=== PATIENT | female | born 1960 ===

== ENCOUNTER 2016-09-25 00:37 | Emergency (ER) | payer MEDICAID ==
[2016-09-25 00:44] VITALS: BP 139/99; PULSE 98; RESP 17; O2SAT 98
--- NOTE | 2016-09-25 00:59 | ED PDOC ---
Lower Extremity Pain/Injury Time Seen by Provider: 09/25/16 00:45 Chief Complaint (Nursing): Lower Extremity Problem/Injury Chief Complaint (Provider): right hip pain History Per: Patient History/Exam Limitations: no limitations Onset/Duration Of Symptoms: Days (2) Current Symptoms Are (Timing): Still Present Additional History Per: Patient Additional Complaint(s): 56 y/o female brought in by EMS for atraumatic right hip pain x 2 days. Patient notes pain worse with weight bearing. Denies falls, excessive walking, numbness/weakness right lower extremity, low back pain. Past Medical History Reviewed: Historical Data, Nursing Documentation, Vital Signs Vital Signs: Last Vital Signs Temp 100.8 F H 09/25/16 00:42 Pulse 98 H 09/25/16 00:42 Resp 17 09/25/16 00:42 BP 139/99 H 09/25/16 00:42 Pulse Ox 98 09/25/16 00:42 - Medical History PMH: Asthma, Diabetes, HTN, Hyperlipidemia, Kidney Stones, Seizures - Family History Family History: States: Unknown Family Hx - Home Medications Home Medications: Ambulatory Orders Medication Instructions Recorded Cyclobenzaprine [Cyclobenzaprine 10 mg PO Q8 PRN #6 tab 09/10/14 HCl] Ibuprofen [Motrin] 600 mg PO Q6 PRN #20 tab 09/10/14 Tramadol Hydrochloride [Tramadol] 50 mg PO TID PRN #10 tab 09/10/14 Divalproex [Depakote ER] 500 mg PO QID 07/25/15 Insulin Glargine,Hum.rec.anlog 60 units SC HS 07/25/15 [Lantus] Insulin Lispro [Humalog] 12 units SC ACBD 07/25/15 Naproxen 500 mg PO BID #30 tab 05/20/16 Naproxen [Naprosyn] 500 mg PO Q12 PRN #20 tablet 09/25/16 traMADol [Ultram] 50 mg PO Q8 PRN #10 tab 09/25/16 - Allergies Allergies/Adverse Reactions: Allergies Allergy/AdvReac Type Severity Reaction Status Date / Time No Known Allergies Allergy Verified 08/22/16 18:28 Review of Systems ROS Statement: Except As Marked, All Systems Reviewed And Found Negative Musculoskeletal: Positive for: Leg Pain (right hip) Physical Exam - Reviewed Nursing Documentation Reviewed: Yes Vital Signs Reviewed: Yes - Physical Exam Appears: Positive for: Well, Non-toxic, No Acute Distress Head Exam: Positive for: ATRAUMATIC, NORMAL INSPECTION, NORMOCEPHALIC Skin: Positive for: Normal Color Eye Exam: Positive for: Normal appearance ENT: Positive for: Normal ENT Inspection Cardiovascular/Chest: Positive for: Regular Rate, Rhythm Respiratory: Positive for: Normal Breath Sounds Pulses-Dorsalis Pedis (L): 2+ Pulses-Dorsalis Pedis (R): 2+ Back: Positive for: Normal Inspection Extremity: Positive for: Normal ROM, Tenderness (right hip; no erythema, swelling, temp change noted). Negative for: Calf Tenderness, Deformity, Swelling Neurologic/Psych: Positive for: Alert, Oriented. Negative for: Motor/Sensory Deficits - ECG O2 Sat by Pulse Oximetry: 98 - Progress ED Course And Treament: xray, toradol IM, tramadol PO On re-eval, patient still with pain, Percocet PO ordered On re-eval, patient states pain improved. Patient educated on findings, discharged with rx Naproxen, Tramadol (educated on possible addiction/dependance of narcotic pain medication and instructed to use as needed for severe pain only) Advised follow up PMD 2-3 days. Rest. Return to ED for worsening/concerning symptoms. Disposition - Clinical Impression Clinical Impression: Hip pain, right - Patient ED Disposition Is Patient to be Admitted: No Counseled Patient/Family Regarding: Studies Performed, Diagnosis, Need For Followup, Rx Given - Disposition Referrals: Laila Santana MD [Primary Care Provider] - Disposition: Routine/Home Disposition Time: 03:20 Condition: IMPROVED Prescriptions: Naproxen [Naprosyn] 500 mg PO Q12 PRN #20 tablet PRN Reason: Pain, Moderate (4-7) traMADol [Ultram] 50 mg PO Q8 PRN #10 tab PRN Reason: Pain, Severe (8-10) Instructions: Hip Pain (ED) Forms: [facility] ED School/Work Excuse
[2016-09-25 01:09] VITALS: TEMP 97.9
[2016-09-25] MEDS ORDERED: Oxycodone/Acetaminophen 5/325 mg Tab ONE (02:29)
[2016-09-25] MEDS ORDERED: Oxycodone/Acetaminophen 5/325 mg Tab PO ONE (02:34)
--- NOTE | 2016-09-25 13:31 | RAD ---
PROCEDURE: The HISTORY: Atraumatic pain COMPARISON: None TECHNIQUE: AP view of the pelvis and AP and frog lateral views of the right hip were obtained. FINDINGS: The pelvic ring is intact. There is no acute fracture or bone destruction. Bone alignment and mineralization are normal. There is mild degenerative osteoarthrosis in the hip joints with reduced joint spaces and marginal spurring. There is multi lobular calcification lateral to the greater trochanter. IMPRESSION: 1. No acute fracture, dislocation or bone destruction. 2. Mild degenerative osteoarthrosis in both hip joints. 3. Lobular calcification lateral to greater trochanter may represent calcific tendinitis/ trochanteric bursitis.
== END 2016-09-25 04:00 | disposition home or self-care (01) ==
LOC: H.ER 00:37
DX: M25.551 Pain in right hip (principal); E11.9 Type 2 diabetes mellitus without complications; Z79.4 Long term (current) use of insulin; E78.5 Hyperlipidemia, unspecified; I10 Essential (primary) hypertension

== ENCOUNTER 2016-12-09 06:19 | Emergency (ER) | payer MEDICAID ==
[2016-12-09 06:36] VITALS: TEMP 98.2
--- NOTE | 2016-12-09 07:34 | ED PDOC ---
HPI: General Adult Time Seen by Provider: 12/09/16 07:09 Chief Complaint (Nursing): Weakness/Neurological Deficit Chief Complaint (Provider): Weakness/Neurological Deficit History Per: Patient History/Exam Limitations: no limitations Onset/Duration Of Symptoms: Hrs Current Symptoms Are (Timing): Still Present Severity: Mild Additional Complaint(s): Patient is a 56 year old female brought to ED by EMS for evaluation of generalized weakness, headache and palpations that began this morning. Patient states that her daughter called EMS because she could not get out of bed. Denies chest pain, SOB, vision changes, vomiting or diarrhea. Notes that the weakness and palpations have improved but she continues to have a headache with nausea. Admits to a history of headaches in the past, this feeling similar. No numbness, tingles. No fever. No neck pain. No abd pain. Headache not worst in her life. PMD: [place] OF note, patient with a history of seizures, last known seizure 6 months ago. Past Medical History Reviewed: Historical Data, Nursing Documentation, Vital Signs Vital Signs: Last Vital Signs Temp 98.2 F 12/09/16 06:33 Pulse 93 H 12/09/16 06:33 Resp 16 12/09/16 06:33 BP 157/96 H 12/09/16 06:33 Pulse Ox 97 12/09/16 09:59 - Medical History PMH: Asthma, Diabetes, HTN, Hyperlipidemia, Kidney Stones, Seizures - Surgical History Surgical History: No Surg Hx - Family History Family History: States: Unknown Family Hx - Living Arrangements Living Arrangements: With Family - Social History Alcohol: None Drugs: Denies - Home Medications Home Medications: Ambulatory Orders Medication Instructions Recorded Cyclobenzaprine [Cyclobenzaprine 10 mg PO Q8 PRN #6 tab 09/10/14 HCl] Ibuprofen [Motrin] 600 mg PO Q6 PRN #20 tab 09/10/14 Tramadol Hydrochloride [Tramadol] 50 mg PO TID PRN #10 tab 09/10/14 Divalproex [Depakote ER] 500 mg PO QID 07/25/15 Insulin Glargine,Hum.rec.anlog 60 units SC HS 07/25/15 [Lantus] Insulin Lispro [Humalog] 12 units SC ACBD 07/25/15 Naproxen 500 mg PO BID #30 tab 05/20/16 Naproxen [Naprosyn] 500 mg PO Q12 PRN #20 tablet 09/25/16 traMADol [Ultram] 50 mg PO Q8 PRN #10 tab 09/25/16 - Allergies Allergies/Adverse Reactions: Allergies Allergy/AdvReac Type Severity Reaction Status Date / Time No Known Allergies Allergy Verified 08/22/16 18:28 Review of Systems ROS Statement: Except As Marked, All Systems Reviewed And Found Negative Constitutional: Positive for: Weakness (generalized) Eyes: Negative for: Vision Change Cardiovascular: Positive for: Palpitations. Negative for: Chest Pain, Light Headedness Respiratory: Negative for: Shortness of Breath Gastrointestinal: Negative for: Nausea, Vomiting, Abdominal Pain Musculoskeletal: Negative for: Neck Pain, Back Pain Neurological: Positive for: Weakness, Headache. Negative for: Numbness Physical Exam - Reviewed Nursing Documentation Reviewed: Yes Vital Signs Reviewed: Yes - Physical Exam Appears: Positive for: Non-toxic, No Acute Distress Skin: Positive for: Normal Color, Warm. Negative for: Diaphoresis, Pallor Eye Exam: Positive for: Normal appearance ENT: Positive for: Normal ENT Inspection. Negative for: Nasal Congestion, Pharyngeal Erythema Neck: Positive for: Normal, Painless ROM, Supple Cardiovascular/Chest: Positive for: Regular Rate, Rhythm, Chest Non Tender. Negative for: Edema, Murmur Respiratory: Positive for: Normal Breath Sounds. Negative for: Respiratory Distress Gastrointestinal/Abdominal: Positive for: Normal Exam (obese), Soft. Negative for: Tenderness, Distended Back: Positive for: Normal Inspection. Negative for: L CVA Tenderness, R CVA Tenderness Extremity: Positive for: Normal ROM. 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 Negative for: Motor/Sensory Deficits, Cerebellar Tests, Aphasia, Facial Droop - Laboratory Results Result Diagrams: 12/09/16 08:05 12/09/16 08:05 Interpretation Of Abn Labs: valproic acid mild elevation. - ECG ECG: Positive for: Interpreted By Me, Viewed By Me ECG Rhythm: Positive for: Normal QRS, Normal ST Segment O2 Sat by Pulse Oximetry: 97 (RA) Pulse Ox Interpretation: Normal - Radiology X-Ray: Interpreted by Me, Viewed By Me X-Ray Interpretation: No Acute Disease - CT Scan/US ct Other Rad Studies (CT/US): Read By Radiologist Other Rad Interpretation: no acute - Progress ED Course And Treament: 948: Stable. AAOx3. Pain free. Tolerated PO. No weakness. Ambulated with no issues. Hold 1 dose of valproic acid. See pcp and neurologist without fail in 2 days. Spoke with Glo Casas, pt. neurologist. She will call me back after reviewing the meds. 1050: Marta called back. Does not want any changes in meds. Wants pt. to continue meds and see them on . Pt. aware and agrees. Medical Decision Making Medical Decision Making: Time: 714 Initial impression: Headache with generalized weakness and palpations Initial plan: -- CT-head -- EKG -- CMP -- Troponin -- Valproic acid -- Urine dip -- CBC -- PT/PTT -- NSF -- CXR Scribe Attestation: Documented by Neelam Hayes acting as a scribe for Kameron Murphy MD MD Scribe Attestation: All medical record entries made by the Scribe were at my direction and personally dictated by me. I have reviewed the chart and agree that the record accurately reflects my personal performance of the history, physical exam, medical decision making, and the department course for this patient. I have also personally directed, reviewed, and agree with the discharge instructions and disposition. Disposition - Clinical Impression Clinical Impression: Weakness, Elevated anticonvulsant drug level - Patient ED Disposition Is Patient to be Admitted: No Counseled Patient/Family Regarding: Studies Performed, Diagnosis, Need For Followup - Disposition Referrals: Mariella Sharma MD [Staff Provider] - 12/10/16 Disposition: Routine/Home Disposition Time: 09:50 Condition: STABLE Additional Instructions: See the neurologist without fail. They are expecting you. They want you to continue medications as prescribed. Return if not better in 3 days. Instructions: Weakness (ED) Forms: [employer] (Polish)
[2016-12-09] MEDS ORDERED: Sodium Chloride 0.9% 1,000 ML IV STA (07:35)
[2016-12-09 08:22] LABS: BASO % 0.6 % (0.0-2.0); EOS # 0.2 K/uL (0.0-0.7); EOS % 2.8 % (0.0-4.0); HEMATOCRIT 44.9 % (34.0-47.0); LYMPH # 3.2 K/uL (1.0-4.3); LYMPH % 41.4 % (20.0-40.0); MEAN CORPUSCULAR HEMOGLOBIN 29.3 pg (27.0-31.0); MEAN CORPUSCULAR HGB CONC 32.9 g/dL (33.0-37.0); MONO # 0.7 K/uL (0.0-0.8); MONO % 8.4 % (0.0-10.0); NEUT # 3.7 K/uL (1.8-7.0); NEUT % 46.8 % (50.0-75.0); NRBC % 0.1 % (0.0-0.0); RED CELL DISTRIBUTION WIDTH 14.1 % (11.5-14.5); WHITE BLOOD COUNT 7.8 K/uL (4.8-10.8)
--- NOTE | 2016-12-09 08:28 | CT ---
PROCEDURE: CT HEAD WITHOUT CONTRAST. HISTORY: headache COMPARISON: None available. TECHNIQUE: Axial computed tomography images were obtained through the head/brain without intravenous contrast. Radiation dose: Total exam DLP = 985.58 mGy-cm. This CT exam was performed using one or more of the following dose reduction techniques: Automated exposure control, adjustment of the mA and/or kV according to patient size, and/or use of iterative reconstruction technique. FINDINGS: HEMORRHAGE: No intracranial hemorrhage. BRAIN: No mass effect or edema. Minimal diffuse age-appropriate cerebral atrophy. Minimal chronic periventricular white matter ischemic change. No evidence of acute infarct. VENTRICLES: Unremarkable. No hydrocephalus. CALVARIUM: Unremarkable. PARANASAL SINUSES: Unremarkable as visualized. No significant inflammatory changes. MASTOID AIR CELLS: Unremarkable as visualized. No inflammatory changes. OTHER FINDINGS: None. IMPRESSION: No intracranial mass, hemorrhage or evidence of acute infarct.
[2016-12-09 08:34] LABS: ALB/GLOB RATIO 1.3 (1.0-2.1); ALKALINE PHOSPHATASE 82 U/L (38-126); ALT/SGPT 54 U/L (9-52); AST/SGOT 33 U/L (14-36); BILIRUBIN,TOTAL 0.3 mg/dl (0.2-1.3); BLOOD UREA NITROGEN 14 mg/dl (7-17); CALCIUM 9.8 mg/dL (8.4-10.2); CARBON DIOXIDE 28 mmol/L (22-30); CHLORIDE 102 mmol/L (98-107); GFR AFRICAN-AMERICAN > 60; GLUCOSE,RANDOM 169 mg/dL (65-105); POTASSIUM 3.8 MMOL/L (3.6-5.0); SODIUM 142 mmol/l (132-148); TOTAL PROTEIN 7.5 G/DL (6.3-8.2)
[2016-12-09 08:48] LABS: PARTIAL THROMBOPLASTIN TIME 30.9 Seconds (25.6-37.1)
[2016-12-09 11:31] VITALS: BP 123/67; PULSE 78; RESP 19; O2SAT 100
--- NOTE | 2016-12-09 13:24 | RAD ---
HISTORY: Weakness. COMPARISON: 08/22/2016. FINDINGS: LUNGS: No active pulmonary disease. PLEURA: No significant pleural effusion identified, no pneumothorax apparent. CARDIOVASCULAR: No radiographic findings to suggest acute or significant cardiovascular disease. OSSEOUS STRUCTURES: No significant abnormalities. VISUALIZED UPPER ABDOMEN: Normal. OTHER FINDINGS: None. IMPRESSION: No active disease. No significant interval change compared to the prior examination(s).
--- NOTE | 2016-12-09 16:59 | CARD ---
APPROVED REPORT EKG Measurement Heart [id number] <Conclusion> Normal sinus rhythm Normal ECG
== END 2016-12-09 11:31 | disposition home or self-care (01) ==
LOC: H.ER 06:19
DX: R51 Headache (principal); R53.1 Weakness; E11.9 Type 2 diabetes mellitus without complications; I10 Essential (primary) hypertension; Z79.4 Long term (current) use of insulin; Z87.442 Personal history of urinary calculi; J45.909 Unspecified asthma, uncomplicated

== ENCOUNTER 2017-04-26 22:17 | Emergency (ER) | payer MEDICAID ==
[2017-04-26 22:23] VITALS: BP 181/87; PULSE 97; RESP 16; TEMP 98.2; O2SAT 99
--- NOTE | 2017-04-26 22:38 | ED PDOC ---
Hyperglycemia/Hypoglycemia Time Seen by Provider: 04/26/17 22:29 Chief Complaint (Nursing): High Blood Sugar Chief Complaint (Provider): "I don't feel well" History Per: Patient : The patient does not have any of the infectious symptoms listed except for those marked. Additional Complaint(s): Pt c.o palpitation since earlier today. patient states she "just does not feel well". Pt also noticed high blood sugar at home. Pt c.o bodyaches and chills. Past Medical History Vital Signs: Last Vital Signs Temp 98.2 F 04/26/17 22:20 Pulse 97 H 04/26/17 22:20 Resp 16 04/26/17 22:20 BP 181/87 H 04/26/17 22:20 Pulse Ox 99 04/26/17 22:20 - Medical History PMH: Asthma, Diabetes, HTN, Hyperlipidemia, Kidney Stones, Seizures - Family History Family History: States: Unknown Family Hx - Home Medications Home Medications: Ambulatory Orders Medication Instructions Recorded Cyclobenzaprine [Cyclobenzaprine 10 mg PO Q8 PRN #6 tab 09/10/14 HCl] Ibuprofen [Motrin] 600 mg PO Q6 PRN #20 tab 09/10/14 Tramadol Hydrochloride [Tramadol] 50 mg PO TID PRN #10 tab 09/10/14 Divalproex [Depakote ER] 500 mg PO QID 07/25/15 Insulin Glargine,Hum.rec.anlog 60 units SC HS 07/25/15 [Lantus] Insulin Lispro [Humalog] 12 units SC ACBD 07/25/15 RX: Naproxen 500 mg PO BID #30 tab 05/20/16 RX: Naproxen [Naprosyn] 500 mg PO Q12 PRN #20 tablet 09/25/16 RX: traMADol [Ultram] 50 mg PO Q8 PRN #10 tab 09/25/16 - Allergies Allergies/Adverse Reactions: Allergies Allergy/AdvReac Type Severity Reaction Status Date / Time No Known Allergies Allergy Verified 08/22/16 18:28 - Laboratory Results Result Diagrams: 04/26/17 23:56 04/26/17 23:56 - ECG O2 Sat by Pulse Oximetry: 99 Disposition - Clinical Impression Clinical Impression: Hyperglycemia - Patient ED Disposition Is Patient to be Admitted: No - Disposition Disposition: Routine/Home Disposition Time: 04:38 Condition: STABLE Instructions: Diabetic Hyperglycemia (ED) Forms: [facility] (Kenyan), [facility] ED School/Work Excuse
[2017-04-26] MEDS ORDERED: Sodium Chloride 0.9% 1,000 ML IV STA (22:40)
[2017-04-26 23:49] LABS: ABG ALLEN TEST YES; ARTERIAL BLOOD GAS HCO3 29.7 mmol/L (21-28); ARTERIAL BLOOD GAS PH 7.47 (7.35-7.45); ARTERIAL BLOOD GAS PO2 77 mm/Hg (80-100)
[2017-04-26] MEDS ORDERED: Insulin Regular 100 units/ml IV STA (23:58)
[2017-04-26 23:59] LABS: BASO # 0.1 K/uL (0.0-0.2); BASO % 0.8 % (0.0-2.0); EOS # 0.4 K/uL (0.0-0.7); EOS % 4.2 % (0.0-4.0); HEMATOCRIT 44.5 % (34.0-47.0); LYMPH # 3.5 K/uL (1.0-4.3); LYMPH % 35.5 % (20.0-40.0); MEAN CELL VOLUME 88.8 fl (81.0-99.0); MEAN CORPUSCULAR HEMOGLOBIN 29.3 pg (27.0-31.0); MEAN PLATELET VOLUME 10.9 fl (7.2-11.7); MONO # 0.9 K/uL (0.0-0.8); MONO % 9.2 % (0.0-10.0); NEUT % 50.3 % (50.0-75.0); RED CELL DISTRIBUTION WIDTH 13.7 % (11.5-14.5); WHITE BLOOD COUNT 9.8 K/uL (4.8-10.8)
[2017-04-27 00:07] LABS: ALB/GLOB RATIO 1.3 (1.0-2.1); ALKALINE PHOSPHATASE 99 U/L (38-126); ALT/SGPT 37 U/L (9-52); AST/SGOT 30 U/L (14-36); BILIRUBIN,TOTAL 0.4 mg/dl (0.2-1.3); BLOOD UREA NITROGEN 22 mg/dl (7-17); CALCIUM 10.2 mg/dL (8.4-10.2); CARBON DIOXIDE 28 mmol/L (22-30); CHLORIDE 94 mmol/L (98-107); GFR AFRICAN-AMERICAN > 60; GLUCOSE,RANDOM 372 mg/dL (65-105); POTASSIUM 4.1 MMOL/L (3.6-5.0); SODIUM 135 mmol/l (132-148); TOTAL PROTEIN 7.6 G/DL (6.3-8.2)
[2017-04-27] MEDS ORDERED: Insulin Regular 100 units/ml ONE (00:30)
[2017-04-27 00:38] LABS: THYROID STIMULATING HORMONE 3.47 mIU/ML (0.46-4.68)
--- NOTE | 2017-04-27 08:45 | CARD ---
APPROVED REPORT EKG Measurement Heart [id number] <Conclusion> Normal sinus rhythm Normal ECG
--- NOTE | 2017-04-27 12:45 | RAD ---
PROCEDURE: CHEST RADIOGRAPH, 1 VIEW HISTORY: med screening COMPARISON: 12/09/2016 FINDINGS: LUNGS: Clear. PLEURA: No pneumothorax or pleural fluid seen. CARDIOVASCULAR: Normal. OSSEOUS STRUCTURES: No significant abnormalities. VISUALIZED UPPER ABDOMEN: Normal. OTHER FINDINGS: None. IMPRESSION: No active disease. No acute/significant interval changes. Please note: No preliminary report/ innterpretation of this examination provided by emergency department personnel.
--- NOTE | 2017-04-27 14:10 | RAD ---
PROCEDURE: Radiographs of the Left Shoulder HISTORY: pain COMPARISON: No prior. FINDINGS: BONES: Normal. No fracture. JOINTS: Normal. Glenohumeral and acromioclavicular joints preserved. No osteoarthritis. SOFT TISSUES: Small calcifications are seen consistent with calcific tendinitis or bursitis. OTHER FINDINGS: None. IMPRESSION: Minimal calcifications consistent with calcific tendinitis or bursitis
== END 2017-04-27 03:57 | disposition home or self-care (01) ==
LOC: H.ER 22:17
DX: R73.9 Hyperglycemia, unspecified (principal); E11.8 Type 2 diabetes mellitus with unspecified complications; I10 Essential (primary) hypertension; Z87.442 Personal history of urinary calculi; J45.909 Unspecified asthma, uncomplicated
CPT/HCPCS: 36600; 71010; 73030; 80053; 82803; 82948; 84443; 84484; 85025; 93005; 96374; 99282; J1885; J7040

== ENCOUNTER 2017-07-15 15:37 | Emergency (ER) | payer MEDICAID ==
[2017-07-15 15:57] VITALS: BP 173/88; PULSE 77; RESP 16; TEMP 97.2; O2SAT 96
--- NOTE | 2017-07-15 17:17 | ED PDOC ---
Lower Extremity Pain/Injury Time Seen by Provider: 07/15/17 16:03 Chief Complaint (Nursing): Lower Extremity Problem/Injury Chief Complaint (Provider): Lower extremity problem History Per: Patient History/Exam Limitations: no limitations Onset/Duration Of Symptoms: Hrs (Today) Current Symptoms Are (Timing): Still Present Additional Complaint(s): Alicia Rodriguez is a 57 year old female, with a past medical history of hypertension, asthma, diabetes and arthritis, who presents to the emergency department complaining of left knee pain after she noticed a lump today. Patient states she woke up this morning and noticed the lump. She denies any trauma or fall. She has not taken any pain medication and denies any other medical complaints. PMD: Mariella Sharma Past Medical History Reviewed: Historical Data, Nursing Documentation, Vital Signs Vital Signs: Last Vital Signs Temp 97.2 F L 07/15/17 15:54 Pulse 77 07/15/17 15:54 Resp 16 07/15/17 15:54 BP 173/88 H 07/15/17 15:54 Pulse Ox 96 07/15/17 15:54 - Medical History PMH: Arthritis, Asthma, Diabetes, HTN, Hyperlipidemia, Kidney Stones, Seizures - Surgical History Surgical History: No Surg Hx - Family History Family History: States: Unknown Family Hx - Social History Current smoker - smoking cessation education provided: No Alcohol: None Drugs: Denies - Home Medications Home Medications: Ambulatory Orders Medication Instructions Recorded Cyclobenzaprine [Cyclobenzaprine 10 mg PO Q8 PRN #6 tab 09/10/14 HCl] Ibuprofen [Motrin] 600 mg PO Q6 PRN #20 tab 09/10/14 Tramadol Hydrochloride [Tramadol] 50 mg PO TID PRN #10 tab 09/10/14 Divalproex [Depakote ER] 500 mg PO QID 07/25/15 Insulin Glargine,Hum.rec.anlog 60 units SC HS 07/25/15 [Lantus] Insulin Lispro [Humalog] 12 units SC ACBD 07/25/15 Naproxen 500 mg PO BID #30 tab 05/20/16 Naproxen [Naprosyn] 500 mg PO Q12 PRN #20 tablet 09/25/16 traMADol [Ultram] 50 mg PO Q8 PRN #10 tab 03/23/17 Glucosa Grimes 2Kcl/Chondroitin Grimes 1 each PO DAILY #30 capsule 07/15/17 [Glucosamine & Chondroitin Cap] Ibuprofen [Motrin] 600 mg PO Q6 #20 tab 07/15/17 Leg Brace [Knee Stabilizer] 1 each MC DAILY #1 each 07/15/17 - Allergies Allergies/Adverse Reactions: Allergies Allergy/AdvReac Type Severity Reaction Status Date / Time No Known Allergies Allergy Verified 07/15/17 15:54 Review of Systems ROS Statement: Except As Marked, All Systems Reviewed And Found Negative Constitutional: Negative for: Other (trauma/fall) Musculoskeletal: Positive for: Leg Pain (left knee mass) Physical Exam - Reviewed Nursing Documentation Reviewed: Yes Vital Signs Reviewed: Yes - Physical Exam Appears: Positive for: Non-toxic, No Acute Distress Head Exam: Positive for: ATRAUMATIC, NORMAL INSPECTION, NORMOCEPHALIC Skin: Positive for: Normal Color, Warm, Dry Eye Exam: Positive for: Normal appearance Neck: Positive for: Normal, Painless ROM, Supple Respiratory: Negative for: Respiratory Distress Extremity: Positive for: Normal ROM, Tenderness (tender and firm, non mobile mass noted to lateral aspect of knee. No surrounding erythema). Negative for: Pedal Edema, Deformity, Swelling Neurologic/Psych: Positive for: Alert, Oriented - ECG O2 Sat by Pulse Oximetry: 96 (RA) Pulse Ox Interpretation: Normal Medical Decision Making Medical Decision Making: Initial Impression: DJD Initial Plan: --Knee 3 views LT [RAD] --Motrin Tab 600 mg PO --reevaluation 17:10 Knee X-Ray FINDINGS: BONES: There is no acute displaced fracture or bone destruction. Bone alignment is normal. JOINTS: There is mild tricompartmental degenerative osteoarthrosis with reduced joint spaces and marginal spurring, worse in the medial compartment. JOINT EFFUSION: There is a small suprapatellar joint effusion. OTHER FINDINGS: There are lobular soft tissue calcifications lateral to the fibular head. . IMPRESSION: No acute displaced fracture or dislocation. Mild tricompartmental degenerative osteoarthrosis, worse in the medial compartment. 18:25 --Upon provider reevaluation patient is feeling better, is medically stable, and requires no further treatment in the ED at this time. Patient will be discharged home with Rx for Motrin, and Glucosamine & Chondroitin cap. Counseling was provided and all questions were answered regarding diagnosis and need for follow up with orthopedist. There is agreement to discharge plan. Return if symptoms persist or worsen. ~ Scribe Attestation: Documented by Darshan Casrto, acting as a scribe for Brenna Carmona PA-C. Provider Scribe Attestation: All medical record entries made by the Scribe were at my direction and personally dictated by me. I have reviewed the chart and agree that the record accurately reflects my personal performance of the history, physical exam, medical decision making, and the department course for this patient. I have also personally directed, reviewed, and agree with the discharge instructions and disposition. Disposition - Clinical Impression Clinical Impression: DJD (degenerative joint disease) - Patient ED Disposition Is Patient to be Admitted: No - Disposition Referrals: Cheryl Starkey MD [Staff Provider] - Disposition: Routine/Home Disposition Time: 18:25 Condition: STABLE Prescriptions: Glucosa Grimes 2Kcl/Chondroitin Grimes [Glucosamine & Chondroitin Cap] 1 each PO DAILY # 30 capsule Ibuprofen [Motrin] 600 mg PO Q6 #20 tab Leg Brace [Knee Stabilizer] 1 each MC DAILY #1 each Instructions: Arthritis (ED) Forms: [employer] (Chilean)
== END 2017-07-15 18:38 | disposition home or self-care (01) ==
LOC: H.ER 15:37
DX: M17.12 Unilateral primary osteoarthritis, left knee (principal); E11.9 Type 2 diabetes mellitus without complications; E78.5 Hyperlipidemia, unspecified; I10 Essential (primary) hypertension; Z79.4 Long term (current) use of insulin; J45.909 Unspecified asthma, uncomplicated

== ENCOUNTER 2017-10-16 22:52 | Emergency (ER) | payer MEDICAID ==
[2017-10-16 22:58] VITALS: RESP 16
[2017-10-17 00:16] LABS: BASO % 0.5 % (0.0-2.0); EOS # 0.3 K/uL (0.0-0.7); EOS % 3.8 % (0.0-4.0); HEMOGLOBIN 13.7 g/dL (12.0-16.0); LYMPH # 3.1 K/uL (1.0-4.3); LYMPH % 35.3 % (20.0-40.0); MEAN CELL VOLUME 89.2 fl (81.0-99.0); MEAN CORPUSCULAR HEMOGLOBIN 29.6 pg (27.0-31.0); MEAN CORPUSCULAR HGB CONC 33.2 g/dL (33.0-37.0); MEAN PLATELET VOLUME 10.3 fl (7.2-11.7); MONO # 0.8 K/uL (0.0-0.8); MONO % 9.5 % (0.0-10.0); NEUT # 4.5 K/uL (1.8-7.0); NEUT % 50.9 % (50.0-75.0); NRBC % 0.2 % (0.0-0.0); RBC 4.61 Mil/uL (3.80-5.20); RED CELL DISTRIBUTION WIDTH 13.5 % (11.5-14.5); WHITE BLOOD COUNT 8.9 K/uL (4.8-10.8)
[2017-10-17 00:22] LABS: ALB/GLOB RATIO 1.1 (1.0-2.1); ALBUMIN 3.5 g/dL (3.5-5.0); ALT/SGPT 25 U/L (9-52); AST/SGOT 21 U/L (14-36); BLOOD UREA NITROGEN 14 mg/dl (7-17); CALCIUM 9.2 mg/dL (8.4-10.2); GFR AFRICAN-AMERICAN > 60; GFR NON-AFRICAN AMERICAN > 60
[2017-10-17 02:18] VITALS: BP 140/72; PULSE 79; TEMP 97.9; O2SAT 99
--- NOTE | 2017-10-17 03:44 | ED PDOC ---
Syncope/Near Syncope/Dizziness Time Seen by Provider: 10/16/17 23:07 Chief Complaint (Nursing): Dizziness/Lightheaded Chief Complaint (Provider): Dizziness/Lightheaded History Per: Patient History/Exam Limitations: no limitations Onset/Duration Of Symptoms: Hrs (x 2) Additional Complaint(s): 57 year old female with history of hypertension, diabetes, asthma, seizure and dislipidemia presents to the ED complaining of dizziness and anxiety for the past 2 hours. Patient states complaints of tremors and getting "fluttering feeling" in her stomach since yesterday evening. She reports experiencing increase in stress level and nausea. Patient denies vomiting or diarrhea. Past Medical History Reviewed: Historical Data, Nursing Documentation, Vital Signs Vital Signs: Last Vital Signs Temp 97.9 F 10/17/17 02:17 Pulse 79 10/17/17 02:17 Resp 16 10/17/17 02:17 BP 140/72 10/17/17 02:17 Pulse Ox 99 10/17/17 02:17 - Medical History PMH: Arthritis, Asthma, Diabetes, HTN, Hyperlipidemia, Kidney Stones, Seizures - Family History Family History: States: Unknown Family Hx - Social History Current smoker - smoking cessation education provided: No Alcohol: None Drugs: Denies - Home Medications Home Medications: Ambulatory Orders Medication Instructions Recorded Cyclobenzaprine [Cyclobenzaprine 10 mg PO Q8 PRN #6 tab 09/10/14 HCl] Ibuprofen [Motrin] 600 mg PO Q6 PRN #20 tab 09/10/14 Tramadol Hydrochloride [Tramadol] 50 mg PO TID PRN #10 tab 09/10/14 Divalproex [Depakote ER] 500 mg PO QID 07/25/15 Insulin Glargine,Hum.rec.anlog 60 units SC HS 07/25/15 [Lantus] Insulin Lispro [Humalog] 12 units SC ACBD 07/25/15 Naproxen 500 mg PO BID #30 tab 05/20/16 Naproxen [Naprosyn] 500 mg PO Q12 PRN #20 tablet 09/25/16 traMADol [Ultram] 50 mg PO Q8 PRN #10 tab 09/25/16 Glucosa Grimes 2Kcl/Chondroitin Grimes 1 each PO DAILY #30 capsule 07/15/17 [Glucosamine & Chondroitin Cap] Ibuprofen [Motrin] 600 mg PO Q6 #20 tab 07/15/17 Leg Brace [Knee Stabilizer] 1 each MC DAILY #1 each 07/15/17 - Allergies Allergies/Adverse Reactions: Allergies Allergy/AdvReac Type Severity Reaction Status Date / Time No Known Allergies Allergy Verified 07/15/17 15:54 Review of Systems ROS Statement: Except As Marked, All Systems Reviewed And Found Negative Constitutional: Negative for: Fever, Chills Cardiovascular: Positive for: Light Headedness Gastrointestinal: Positive for: Nausea. Negative for: Vomiting, Diarrhea Neurological: Positive for: Dizziness Psych: Positive for: Anxiety Physical Exam - Reviewed Nursing Documentation Reviewed: Yes Vital Signs Reviewed: Yes - Physical Exam Appears: Positive for: Non-toxic, No Acute Distress Head Exam: Positive for: ATRAUMATIC, NORMOCEPHALIC Skin: Positive for: Normal Color, Warm, Dry Eye Exam: Positive for: Normal appearance, EOMI, PERRL ENT: Positive for: Normal ENT Inspection Neck: Positive for: Normal Cardiovascular/Chest: Positive for: Regular Rate, Rhythm. Negative for: Murmur Respiratory: Positive for: Normal Breath Sounds. Negative for: Respiratory Distress Gastrointestinal/Abdominal: Positive for: Other (Fluttering feeling in stomach) Back: Positive for: Normal Inspection. Negative for: L CVA Tenderness, R CVA Tenderness Extremity: Positive for: Normal ROM Neurologic/Psych: Positive for: Alert, Oriented - Laboratory Results Result Diagrams: 10/16/17 23:55 10/16/17 23:55 - ECG O2 Sat by Pulse Oximetry: 99 (RA) Pulse Ox Interpretation: Normal Medical Decision Making Medical Decision Making: Initial Impression: 57 year female with nonspecific fluttering sensation. Initial Plan: --EKG ____ Time: 0200 Patient's depakote level is noted to be low. Patient states previously had toxic level of depakote and was recently adjusted by her neurologist. She will follow up with her neurologist for advice regarding her current subtherapeutic depakote levels. Time:0220 Lab reviews show no significant abnormality. Patient is stable for discharge. Diagnosis: anxiety Scribe Attestation: Documented by Suzanne King, acting as a scribe for Jamar Soria MD. Provider Scribe Attestation: All medical record entries made by the Scribe were at my direction and personally dictated by me. I have reviewed the chart and agree that the record accurately reflects my personal performance of the history, physical exam, medical decision making, and the department course for this patient. I have also personally directed, reviewed, and agree with the discharge instructions and disposition. Disposition - Clinical Impression Clinical Impression: Anxiety - Disposition Disposition: Routine/Home Disposition Time: 02:20 Condition: STABLE Instructions: Anxiety, Adult (DC) Forms: [employer] (Welsh)
--- NOTE | 2017-10-17 08:34 | CARD ---
APPROVED REPORT EKG Measurement Heart [id number] <Conclusion> Normal sinus rhythm Normal ECG
== END 2017-10-17 02:40 | disposition home or self-care (01) ==
LOC: H.ER 22:52
DX: R42 Dizziness and giddiness (principal); F41.9 Anxiety disorder, unspecified; E11.9 Type 2 diabetes mellitus without complications; E78.5 Hyperlipidemia, unspecified; I10 Essential (primary) hypertension; Z79.4 Long term (current) use of insulin

== ENCOUNTER 2017-11-09 23:48 | Emergency (ER) | payer MEDICAID ==
[2017-11-10 00:11] VITALS: RESP 18
[2017-11-10 00:59] LABS: BASO % 0.4 % (0.0-2.0); EOS # 0.5 K/uL (0.0-0.7); HEMOGLOBIN 14.3 g/dL (12.0-16.0); LYMPH # 3.3 K/uL (1.0-4.3); LYMPH % 36.7 % (20.0-40.0); MEAN CELL VOLUME 88.6 fl (81.0-99.0); MEAN CORPUSCULAR HEMOGLOBIN 29.7 pg (27.0-31.0); MEAN CORPUSCULAR HGB CONC 33.5 g/dL (33.0-37.0); MEAN PLATELET VOLUME 10.5 fl (7.2-11.7); MONO # 0.7 K/uL (0.0-0.8); MONO % 7.5 % (0.0-10.0); NEUT # 4.5 K/uL (1.8-7.0); NEUT % 50.4 % (50.0-75.0); RBC 4.82 Mil/uL (3.80-5.20); RED CELL DISTRIBUTION WIDTH 13.9 % (11.5-14.5)
--- NOTE | 2017-11-10 00:59 | ED PDOC ---
HPI: Seizure Time Seen by Provider: 11/09/17 23:50 Chief Complaint (Nursing): Seizure Chief Complaint (Provider): Seizure History Per: Patient History/Exam Limitations: no limitations Additional Complaint(s): 57 years old female with history of seizure, anxiety and diabetes presents to the ED for evaluation of unwitnessed seizure prior to arrival. Patient reports "blacking out" even though she is compliant on medications. she believs it was a seizure that she had in bed. she did not hit head or fall out of bed. She denies any fever, recent illness, cough or allergies. PMD: [facility] Past Medical History Reviewed: Historical Data, Nursing Documentation, Vital Signs Vital Signs: Last Vital Signs Temp 98.9 F 11/10/17 05:56 Pulse 72 11/10/17 07:11 Resp 18 11/10/17 07:11 BP 143/86 11/10/17 07:11 Pulse Ox 99 11/10/17 07:11 - Medical History PMH: Arthritis, Asthma, Diabetes, HTN, Hyperlipidemia, Kidney Stones, Seizures - Surgical History Surgical History: No Surg Hx - Family History Family History: States: Unknown Family Hx - Social History Current smoker - smoking cessation education provided: No Alcohol: None Drugs: Denies - Home Medications Home Medications: Ambulatory Orders Medication Instructions Recorded Cyclobenzaprine [Cyclobenzaprine 10 mg PO Q8 PRN #6 tab 09/10/14 HCl] Ibuprofen [Motrin] 600 mg PO Q6 PRN #20 tab 09/10/14 Tramadol Hydrochloride [Tramadol] 50 mg PO TID PRN #10 tab 09/10/14 Divalproex [Depakote ER] 500 mg PO QID 07/25/15 Insulin Glargine,Hum.rec.anlog 60 units SC HS 07/25/15 [Lantus] Insulin Lispro [Humalog] 12 units SC ACBD 07/25/15 Naproxen 500 mg PO BID #30 tab 05/20/16 Naproxen [Naprosyn] 500 mg PO Q12 PRN #20 tablet 09/25/16 traMADol [Ultram] 50 mg PO Q8 PRN #10 tab 09/25/16 Glucosa Grimes 2Kcl/Chondroitin Grimes 1 each PO DAILY #30 capsule 07/15/17 [Glucosamine & Chondroitin Cap] Ibuprofen [Motrin] 600 mg PO Q6 #20 tab 07/15/17 Leg Brace [Knee Stabilizer] 1 each MC DAILY #1 each 07/15/17 Nitrofurantoin Macrocrystals 100 mg PO BID #14 cap 11/10/17 [Macrobid] - Allergies Allergies/Adverse Reactions: Allergies Allergy/AdvReac Type Severity Reaction Status Date / Time No Known Allergies Allergy Verified 07/15/17 15:54 Review of Systems ROS Statement: Except As Marked, All Systems Reviewed And Found Negative Constitutional: Negative for: Fever Respiratory: Negative for: Cough Neurological: Positive for: Seizures (possible) Physical Exam - Reviewed Nursing Documentation Reviewed: Yes - Physical Exam Appears: Positive for: Non-toxic, No Acute Distress Head Exam: Positive for: ATRAUMATIC, NORMOCEPHALIC Skin: Positive for: Normal Color, Warm, Dry Eye Exam: Positive for: Normal appearance, EOMI, PERRL ENT: Positive for: Normal ENT Inspection Neck: Positive for: Normal, Painless ROM, Supple Cardiovascular/Chest: Positive for: Regular Rate, Rhythm. Negative for: Murmur Respiratory: Positive for: Normal Breath Sounds. Negative for: Respiratory Distress Gastrointestinal/Abdominal: Positive for: Normal Exam, Soft. Negative for: Tenderness Back: Positive for: Normal Inspection. Negative for: L CVA Tenderness, R CVA Tenderness Extremity: Positive for: Normal ROM. 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 Negative for: Motor/Sensory Deficits, Aphasia, Facial Droop - Laboratory Results Result Diagrams: 11/10/17 00:55 11/10/17 00:55 - ECG O2 Sat by Pulse Oximetry: 96 (RA) Pulse Ox Interpretation: Normal Medical Decision Making Medical Decision Making: Time: 30 Initial Impression: Breakthrough seizure, with history of seizure. pt currently at baseline as far as mental status, with a normal neurological exam. Initial Plan: --CMP --CBC --Valproic Acid --Glucose --Blood Culture --Urine C&S --Urinalysis 0350 Labs are reviewed and show slight elevation of sugar, UTI. pt given first dose of antibiotics here for uti. will give po abx. Patient is prescribed antibiotics and is stable for discharge. pt feels better, will follow up with neurologist (pt has appt). Scribe Attestation: Documented by Suzanne King, acting as a scribe for Roberto Hidalgo MD. Provider Scribe Attestation: All medical record entries made by the Scribe were at my direction and personally dictated by me. I have reviewed the chart and agree that the record accurately reflects my personal performance of the history, physical exam, medical decision making, and the department course for this patient. I have also personally directed, reviewed, and agree with the discharge instructions and disposition. Disposition - Clinical Impression Clinical Impression: UTI (urinary tract infection), Seizure - Patient ED Disposition Is Patient to be Admitted: No Counseled Patient/Family Regarding: Studies Performed, Diagnosis, Need For Followup - Disposition Referrals: [facility] [Outside] Marcos Cook MD [Staff Provider] - Disposition: Routine/Home Disposition Time: 03:00 Condition: IMPROVED Additional Instructions: follow up with your neruologist in 1-2 days return to the ED with any worsening or concerning symptoms Prescriptions: Nitrofurantoin Macrocrystals [Macrobid] 100 mg PO BID #14 cap Instructions: Urinary Tract Infection, Adult (DC), Seizures, Adult (DC) Forms: [employer] (Urdu), [facility] ED School/Work Excuse
[2017-11-10 01:05] LABS: SQUAMOUS EPITHIAL 1 /hpf (0-5); URINE BILIRUBIN NEGATIVE (NEGATIVE); URINE BLOOD NEGATIVE (NEGATIVE); URINE CLARITY CLEAR (Clear); URINE COLOR STRAW (YELLOW); URINE GLUCOSE (UA) >=500 mg/dL (Normal); URINE LEUKOCYTE ESTERASE SMALL Leu/uL (Negative); URINE PROTEIN NEGATIVE (NEGATIVE); URINE UROBILINOGEN 0.2-1.0 mg/dL (0.2-1.0)
[2017-11-10 01:21] LABS: ALB/GLOB RATIO 1.1 (1.0-2.1); ALBUMIN 3.9 g/dL (3.5-5.0); ALT/SGPT 32 U/L (9-52); AST/SGOT 22 U/L (14-36); BLOOD UREA NITROGEN 21 mg/dl (7-17); CALCIUM 9.4 mg/dL (8.4-10.2); GFR AFRICAN-AMERICAN > 60; GFR NON-AFRICAN AMERICAN > 60
[2017-11-10] MEDS ORDERED: Sodium Chloride 0.9% 1,000 ML IV STA (03:50)
[2017-11-10 05:58] VITALS: TEMP 98.9
[2017-11-10 07:12] VITALS: BP 143/86; PULSE 72
[2017-11-11 12:15] VITALS: O2SAT 96
== END 2017-11-10 07:12 | disposition home or self-care (01) ==
LOC: H.ER 23:48
DX: R56.9 Unspecified convulsions (principal); N39.0 Urinary tract infection, site not specified; E11.9 Type 2 diabetes mellitus without complications; E78.5 Hyperlipidemia, unspecified; F41.9 Anxiety disorder, unspecified; I10 Essential (primary) hypertension; J45.909 Unspecified asthma, uncomplicated; Z79.4 Long term (current) use of insulin
CPT/HCPCS: 80053; 80164; 81003; 82948; 85025; 87040; 87086; 96365; 99285; J0696; J7040

== ENCOUNTER 2018-03-16 09:16 | Emergency (ER) | payer MEDICAID ==
--- NOTE | 2018-03-16 09:38 | ED PDOC ---
Upper Extremity Pain/Injury Time Seen by Provider: 03/16/18 09:30 History Per: Patient Onset/Duration Of Symptoms: Days (3) Current Symptoms Are (Timing): Still Present Quality: Aching Severity: Moderate Exacerbating Factor(s): Movement Additional Complaint(s): Left shoulder pain x 3 days. Possibly related to heavy lifting. Worse on movement. No weakness or parasthesias. Past Medical History - Medical History PMH: Arthritis, Asthma, Diabetes, HTN, Hyperlipidemia, Kidney Stones, Seizures - Family History Family History: States: Unknown Family Hx - Home Medications Home Medications: Ambulatory Orders Medication Instructions Recorded Cyclobenzaprine [Cyclobenzaprine 10 mg PO Q8 PRN #6 tab 09/10/14 HCl] Ibuprofen [Motrin] 600 mg PO Q6 PRN #20 tab 09/10/14 Tramadol Hydrochloride [Tramadol] 50 mg PO TID PRN #10 tab 09/10/14 Divalproex [Depakote ER] 500 mg PO QID 07/25/15 Insulin Glargine,Hum.rec.anlog 60 units SC HS 07/25/15 [Lantus] Insulin Lispro [Humalog] 12 units SC ACBD 07/25/15 Naproxen 500 mg PO BID #30 tab 05/20/16 Naproxen [Naprosyn] 500 mg PO Q12 PRN #20 tablet 09/25/16 traMADol [Ultram] 50 mg PO Q8 PRN #10 tab 09/25/16 Glucosa Grimes 2Kcl/Chondroitin Grimes 1 each PO DAILY #30 capsule 07/15/17 [Glucosamine & Chondroitin Cap] Ibuprofen [Motrin] 600 mg PO Q6 #20 tab 07/15/17 Leg Brace [Knee Stabilizer] 1 each MC DAILY #1 each 07/15/17 Nitrofurantoin Macrocrystals 100 mg PO BID #14 cap 11/10/17 [Macrobid] Naproxen [Naprosyn] 500 mg PO Q12H #20 tab 03/16/18 traMADol [Ultram] 50 mg PO Q8 #10 tab 03/16/18 - Allergies Allergies/Adverse Reactions: Allergies Allergy/AdvReac Type Severity Reaction Status Date / Time No Known Allergies Allergy Verified 03/16/18 09:36 Review of Systems Cardiovascular: Negative for: Chest Pain Musculoskeletal: Positive for: Shoulder Pain Neurological: Negative for: Weakness, Numbness Physical Exam - Physical Exam Appears: Positive for: Non-toxic, No Acute Distress Skin: Positive for: Normal Color, Warm, DRY Pulses-Radial (L): 2+ Extremity: Positive for: Tenderness (ant left shoulder. ROM limited by pain) Neurologic/Psych: Positive for: Alert, Oriented. Negative for: Motor/Sensory Deficits Disposition - Clinical Impression Clinical Impression: Bursitis - Patient ED Disposition Is Patient to be Admitted: No Counseled Patient/Family Regarding: Studies Performed, Diagnosis, Need For Followup, Rx Given - Disposition Referrals: [facility] [Outside] Disposition: Routine/Home Disposition Time: 11:48 Condition: FAIR Prescriptions: Naproxen [Naprosyn] 500 mg PO Q12H #20 tab traMADol [Ultram] 50 mg PO Q8 #10 tab Instructions: Bursitis
[2018-03-16 11:57] VITALS: O2SAT 98
[2018-03-16 12:17] VITALS: BP 139/80; PULSE 80; RESP 18; TEMP 97.4
--- NOTE | 2018-03-16 12:27 | RAD ---
Date of service: 03/16/2018 PROCEDURE: Radiographs of the Left Shoulder HISTORY: pain COMPARISON: Left shoulder radiographs 04/27/2017. FINDINGS: BONES: No acute fracture or destructive bony lesion identified. JOINTS: No dislocation or subluxation appreciate. Degenerative changes are reiterated at the acromioclavicular and glenohumeral joints comprised of osteophyte development as well as cortical sclerosis. SOFT TISSUES: NormalHeterotopic calcification superolateral to the greater tuberosity suggests calcific tendinopathy. . OTHER FINDINGS: None. IMPRESSION: No acute fracture, subluxation or dislocation left shoulder. Degenerative changes reiterated at both AC and glenohumeral joints and may include calcific tendinopathy as per above.
== END 2018-03-16 12:17 | disposition home or self-care (01) ==
LOC: H.ER 09:16
DX: M19.012 Primary osteoarthritis, left shoulder (principal); E11.9 Type 2 diabetes mellitus without complications; Z79.4 Long term (current) use of insulin; E78.5 Hyperlipidemia, unspecified; I10 Essential (primary) hypertension
CPT/HCPCS: 73030; 96372; 99283; J1885

== ENCOUNTER 2018-08-04 10:39 | Emergency (ER) | payer MEDICAID ==
[2018-08-04 10:45] VITALS: PULSE 101; RESP 18; TEMP 98.8
[2018-08-04] MEDS ORDERED: Naproxen 500 MG TAB PO STA (11:06)
--- NOTE | 2018-08-04 11:12 | ED PDOC ---
Upper Extremity Pain/Injury Time Seen by Provider: 08/04/18 10:59 Chief Complaint (Nursing): Upper Extremity Problem/Injury Chief Complaint (Provider): Upper Extremity Problem/Injury History Per: Patient History/Exam Limitations: no limitations Onset/Duration Of Symptoms: Days (x3) Current Symptoms Are (Timing): Still Present Additional Complaint(s): 58 year old male with a past medical history of diabetes and hypertension who is presenting to the ED for evaluation of right shoulder pain ongoing for 3 days. Patient states that pain is worse with movement and he denies any injury to shoulder. He also denies any weakness, paresthesias or any other medical complaints. PMD: [facility] Past Medical History Reviewed: Historical Data, Nursing Documentation, Vital Signs Vital Signs: Last Vital Signs Temp 98.8 F 08/04/18 10:45 Pulse 101 H 08/04/18 10:45 Resp 18 08/04/18 10:45 BP 157/88 H 08/04/18 10:45 Pulse Ox 96 08/04/18 10:45 - Medical History PMH: Arthritis, Asthma, Diabetes, HTN, Hyperlipidemia, Kidney Stones, Seizures - Surgical History Surgical History: No Surg Hx - Family History Family History: States: Unknown Family Hx - Social History Current smoker - smoking cessation education provided: No Alcohol: None Drugs: Denies - Home Medications Home Medications: Ambulatory Orders Medication Instructions Recorded Cyclobenzaprine [Cyclobenzaprine 10 mg PO Q8 PRN #6 tab 09/10/14 HCl] Ibuprofen [Motrin] 600 mg PO Q6 PRN #20 tab 09/10/14 Tramadol Hydrochloride [Tramadol] 50 mg PO TID PRN #10 tab 09/10/14 Divalproex [Depakote ER] 500 mg PO QID 07/25/15 Insulin Glargine,Hum.rec.anlog 60 units SC HS 07/25/15 [Lantus] Insulin Lispro [Humalog] 12 units SC ACBD 07/25/15 Naproxen 500 mg PO BID #30 tab 05/20/16 Naproxen [Naprosyn] 500 mg PO Q12 PRN #20 tablet 09/25/16 traMADol [Ultram] 50 mg PO Q8 PRN #10 tab 09/25/16 Glucosa Grimes 2Kcl/Chondroitin Grimes 1 each PO DAILY #30 capsule 07/15/17 [Glucosamine & Chondroitin Cap] Ibuprofen [Motrin] 600 mg PO Q6 #20 tab 07/15/17 Leg Brace [Knee Stabilizer] 1 each MC DAILY #1 each 07/15/17 Nitrofurantoin Macrocrystals 100 mg PO BID #14 cap 11/10/17 [Macrobid] Naproxen [Naprosyn] 500 mg PO Q12H #20 tab 03/16/18 traMADol [Ultram] 50 mg PO Q8 #10 tab 03/16/18 Naproxen [Naprosyn] 500 mg PO Q12H #20 tab 08/04/18 - Allergies Allergies/Adverse Reactions: Allergies Allergy/AdvReac Type Severity Reaction Status Date / Time No Known Allergies Allergy Verified 08/04/18 11:01 Review of Systems ROS Statement: Except As Marked, All Systems Reviewed And Found Negative Musculoskeletal: Positive for: Shoulder Pain Neurological: Negative for: Weakness Physical Exam - Reviewed Nursing Documentation Reviewed: Yes Vital Signs Reviewed: Yes - Physical Exam Appears: Positive for: Well, Non-toxic, No Acute Distress Head Exam: Positive for: ATRAUMATIC, NORMAL INSPECTION, NORMOCEPHALIC Skin: Positive for: Normal Color Neck: Positive for: Normal, Painless ROM Respiratory: Negative for: Respiratory Distress Extremity: Positive for: Other ( right shoulder: no swelling no deformity; range of motion limited by pain and mild tenderness anteriorly and posteriorly with Radial pulses 2/4 bilaterally ). Negative for: Deformity, Swelling Neurologic/Psych: Positive for: Alert, Oriented. Negative for: Motor/Sensory Deficits - ECG O2 Sat by Pulse Oximetry: 96 (RA) Pulse Ox Interpretation: Normal Medical Decision Making Medical Decision Making: Time: 11:06 Plan: --Shoulder x-ray --Naproxen 500 mg PO Scribe Attestation: Documented by Maggi Manzanares, acting as a scribe for Evangelista Ya MD. Provider Scribe Attestation: All medical record entries made by the Scribe were at my direction and personally dictated by me. I have reviewed the chart and agree that the record accurately reflects my personal performance of the history, physical exam, medical decision making, and the department course for this patient. I have also personally directed, reviewed, and agree with the discharge instructions and disposition. Disposition - Clinical Impression Clinical Impression: Shoulder pain - Patient ED Disposition Is Patient to be Admitted: No Counseled Patient/Family Regarding: Studies Performed, Diagnosis, Need For Followup, Rx Given - Disposition Referrals: [facility] [Outside] Disposition: Routine/Home Disposition Time: 11:38 Condition: FAIR Prescriptions: Naproxen [Naprosyn] 500 mg PO Q12H #20 tab Instructions: Shoulder Pain (DC), Bursitis Forms: [facility] ([place])
[2018-08-04] MEDS ORDERED: Naproxen 500 MG TAB PO ONE (11:25)
--- NOTE | 2018-08-04 11:33 | RAD ---
Date of service: 08/04/2018 PROCEDURE: Radiographs of the Right Shoulder HISTORY: pain COMPARISON: No prior. FINDINGS: BONES: No fracture appreciated JOINTS: Glenohumeral and acromioclavicular joint arthrosis. Thoracic spondylosis. SOFT TISSUES: Normal. OTHER FINDINGS: None. IMPRESSION: No fracture, lytic lesion or dislocation. Right shoulder arthrosis. Thoracic spondylosis
[2018-08-04 12:07] VITALS: BP 150/88; O2SAT 99
== END 2018-08-04 12:17 | disposition home or self-care (01) ==
LOC: H.ER 10:39
DX: M25.511 Pain in right shoulder (principal)